=== PATIENT | male | born 1985 | race Caucasian/White ===

== ENCOUNTER 2016-10-08 09:10 | Emergency (ER) | payer OTHER ==
[2016-10-08 09:16] VITALS: BP 127/87
[2016-10-08] MEDS ORDERED: MECLIZINE 12.5 MG TABLET PO STA (09:29)
--- NOTE | 2016-10-08 09:32 | ED Physician Documentation ---
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 He has not had other symptoms he has not had nausea or vomiting he has not had lightheadedness. He notes that if he moves his head he will get dizzy and he noticed that he is hanging onto the wall to walk. He does not have a headache or fever. Denies any cough or ear pain. Review of Systems Constitutional: denies: Fever, Chills, Myalgias, Fatigue Eyes: denies: Decreased vision Ears: denies: Ear pain Nose: denies: Rhinorrhea / runny nose, Congestion Throat: denies: Sore throat Cardiac: denies: Chest pain / pressure, Palpitations Respiratory: denies: Dyspnea, Cough GI: denies: Abdominal Pain, Nausea, Vomiting : denies: Dysuria, Frequency Skin: denies: Lesions Musculoskeletal: denies: Neck pain, Back pain Neurologic: reports: Other (Dizziness). denies: Headache, Head injury, LOC Psychiatric: denies: Hallucinations PD PAST MEDICAL HISTORY - Present Medications Home Medications: Ambulatory Orders Medication Instructions Recorded Confirmed Meclizine [Antivert] 25 mg PO Q6H #20 tablet 10/08/16 - Allergies Allergies/Adverse Reactions: Allergies Allergy/AdvReac Type Severity Reaction Status Date / Time No Known Drug Allergies Allergy Verified 10/08/16 09:15 PD ED PE NORMAL - Vitals Vital signs reviewed: Yes (Hypertensive) - General General: Alert and oriented X 3, No acute distress, Well developed/nourished - HEENT HEENT: Atraumatic, PERRL, EOMI, Ears normal, Moist mucous membranes, Pharynx benign, Dentition benign, Other (There are 5 beats of nystagmus in each direction.) - Neck Neck: Supple, no meningeal sign, No bony TTP - Cardiac Cardiac: RRR, No murmur - Respiratory Respiratory: No respiratory distress, Clear bilaterally - Back Back: No CVA TTP, No spinal TTP - Derm Derm: Normal color, No rash - Extremities Extremities: No deformity, No edema - Neuro Neuro: Alert and oriented X 3, No motor deficit, No sensory deficit, Normal speech - Psych Psych: Normal mood, Normal affect Results - Vitals Vitals: Vital Signs - 24 hr 10/08/16 09:13 Temperature 36.3 C L Heart Rate 73 Respiratory 16 Rate Blood Pressure 127/87 H O2 Saturation 99 Oxygen O2 Source Room air PD MEDICAL DECISION MAKING - ED course Complexity details: considered differential, d/w patient ED course: 31-year-old male with acute labyrinthitis has dizziness with a lot of nystagmus he does not have other concerning features he does not have nausea or vomiting he does not have propelling vertigo he does not have signs or symptoms of otitis media. Here in the emergency department he is treated with 25 mg of meclizine orally. Departure - Departure Disposition: 01 Home, Self Care Clinical Impression: Labyrinthitis Qualifiers: Laterality: bilateral Qualified Code(s): H83.03 - Labyrinthitis, bilateral Condition: Stable Instructions: ED Labyrinthitis Follow-Up: CHRIS Garrido [Provider Group] Prescriptions: Meclizine [Antivert] 25 mg PO Q6H #20 tablet Comments: Today in the Emergency Department your blood pressure was elevated. This can happen from the stress of the visit itself, from a current illness or circumstance or from uncontrolled hypertension. If you take blood pressure medications take your usual mediations, have your blood pressure re-checked in an appropriate setting and follow up any elevation with your primary care doctor.
[2016-10-08] MEDS ORDERED: MECLIZINE 12.5 MG TABLET PO ONE (09:37)
== END 2016-10-08 09:39 | disposition home or self-care (01) ==
LOC: ED 09:10
DX: H83.03 Labyrinthitis, bilateral (principal); R03.0 Elevated blood-pressure reading, without diagnosis of hypertension
CPT/HCPCS: 99283; A9270